=== PATIENT | male | born 1980 | race Native Hawaiian/Other Pacific Islander ===

== ENCOUNTER 2019-01-27 16:11 | Outpatient (CLI) | payer MEDICAID | END 2019-01-27 16:12 | disposition critical access hospital (66) | LOC: EMS 16:11 | PROVIDERS: ATTEND Surgery | DX: R07.9 Chest pain, unspecified (principal) | CPT/HCPCS: A0425; A0429 ==

== ENCOUNTER 2019-01-27 16:29 | Emergency (ER) | payer MEDICAID ==
[2019-01-27] MEDS ORDERED: LORazepam 2 MG/ML VIAL IM STA (16:44)
[2019-01-27] MEDS ORDERED: ONDANSETRON ODT 4 MG TABLET TL STA (16:44)
--- NOTE | 2019-01-27 16:47 | ED Physician Documentation ---
PD HPI CHEST PAIN - Stated complaint Stated Complaint: CP - Chief complaint Chief Complaint: Cardiac - History obtained from History obtained from: Patient - History of Present Illness Timing - onset: Other (38-year-old gentleman presents in police custody for chest pain and headache. He says he is had daily headaches for the last 6 months but has had migraines since he was the age of 21. He had his usual headache today associated with light sensitivity. He vomited with it. He is he took Tylenol and ibuprofen without relief. It is his typical headache. He is never had cranial imaging or seen a doctor for it. Then he used some intravenous methamphetamine and heroin. He went to [employer] where he was caught shoplifting and developed sharp anterior substernal chest pain. He is not short of breath with it. He has no heart problems.) Review of Systems Constitutional: denies: Fever, Chills Cardiac: reports: Chest pain / pressure. denies: Palpitations Respiratory: denies: Dyspnea, Cough GI: denies: Abdominal Pain, Nausea, Vomiting PD PAST MEDICAL HISTORY - Present Medications Home Medications: Ambulatory Orders Medication Instructions Recorded Confirmed No Known Home Medications 01/27/19 01/27/19 - Allergies Allergies/Adverse Reactions: Allergies Allergy/AdvReac Type Severity Reaction Status Date / Time No Known Drug Allergies Allergy Verified 01/27/19 16:36 PD ED PE NORMAL - Vitals Vital signs reviewed: Yes - General General: Alert and oriented X 3, No acute distress, Other (He is cooperative, but keeping his eyes closed. He is persistently asking for water. He is photophobic.) - HEENT HEENT: PERRL, EOMI - Neck Neck: Supple, no meningeal sign, No bony TTP - Cardiac Cardiac: RRR, No murmur - Respiratory Respiratory: No respiratory distress, Clear bilaterally - Abdomen Abdomen: Non tender - Neuro Neuro: Alert and oriented X 3, polymerization helper 2-12 intact, No motor deficit, No sensory deficit, Normal speech - Psych Psych: Normal mood, Normal affect Results - Vitals Vitals: Vital Signs - 24 hr 01/27/19 16:31 Temperature 37.0 C Heart Rate 104 H Respiratory 20 Rate Blood Pressure 123/75 O2 Saturation 97 Oxygen O2 Source Room air - EKG (time done) 1635 Rate: Rate (enter#) (107) Rhythm: Sinus tachycardia [place]: Normal Intervals: Normal MT QRS: Normal Ischemia: Normal ST segments Computer interpretation: Agree with computer - Labs Labs: Laboratory Tests 01/27/19 16:55 Troponin I High Sens < 2.3 L - Rads (name of study) CT Head and CXR Radiology: EMP read contemporaneously (normal) PD MEDICAL DECISION MAKING - ED course ED course: This is a young man who presents with ongoing headaches that have never been a been worked up. He also has new chest pain in the setting of heroin and methamphetamine abuse. His mental status is slightly hypervigilant. The headache pattern is most consistent with status migrainosus. My understanding is that he will be going to retirement after this work-up so we will do some cranial imaging, it could be done as outpatient but I do not think there is a way to do it in any sort of fashion given the circumstances other than doing it in the emergency depart. Given the circumstances I have a low suspicion for ACS, PE, dissection. His EKG is nonischemic. We will obtain a high-sensitivity troponin. - Consults Consults: Discussed case with (JOCELYNE Holm at retirement) Departure - Departure Disposition: 01 Home, Self Care Clinical Impression: Atypical chest pain Headache Qualifiers: Headache type: unspecified Headache chronicity pattern: chronic headache Intractability: not intractable Qualified Code(s): R51 - Headache Condition: Good Record reviewed to determine appropriate education?: Yes Instructions: ED Chest Pain NonCardiac, ED Cephalgia Unspecified Comments: Call your doctor to arrange a follow-up appointment, make the next available appointment. In the interim, return anytime if worse or if new symptoms develop. Avoid drug use
--- NOTE | 2019-01-27 17:42 | XRAY Report ---
Reason: chest pain Procedure Date: 01/27/2019 Accession Number: [id number] / [id number] Procedure: XR - Chest 2 View X-Ray CPT Code: 90524 Final Report FULL RESULT: EXAM: CHEST RADIOGRAPHY EXAM DATE: 01/27/2019 05:13 PM. CLINICAL HISTORY: Chest pain. COMPARISON: None. TECHNIQUE: 2 views. FINDINGS: Lungs/Pleura: No infiltrates. No pleural effusions or pneumothorax. Mediastinum: Heart and mediastinal contours are unremarkable. Other: None. IMPRESSION: No acute cardiopulmonary findings radiographically. [facility]
--- NOTE | 2019-01-27 17:50 | CT Report ---
Reason: headaches Procedure Date: 01/27/2019 Accession Number: [id number] / [id number] Procedure: CT - HEAD WO CPT Code: Final Report FULL RESULT: EXAM: CT HEAD EXAM DATE: 01/27/2019 05:12 PM. CLINICAL HISTORY: Headaches. COMPARISON: None. TECHNIQUE: Multiaxial CT images were obtained from the foramen magnum to the vertex. Reformats: Sagittal and coronal. IV contrast: None. In accordance with CT protocol optimization, one or more of the following dose reduction techniques were utilized for this exam: automated exposure control, adjustment of mA and/or KV based on patient size, or use of iterative reconstructive technique. FINDINGS: Parenchyma: No intraparenchymal hemorrhage. No evidence of mass, midline shift, or CT findings of infarction. Duckworth-white differentiation is distinct. Extraaxial Spaces: Normal for age. No subdural or epidural collections identified. Ventricles: Normal in size and position. Sinuses and Orbits: Polyp/retention cyst in the right maxillary sinus. Bones: No evidence of fracture or calvarial defect. Other: None. IMPRESSION: No acute intracranial findings. [facility]
[2019-01-27 18:13] VITALS: BP 132/77
== END 2019-01-27 18:14 | disposition home or self-care (01) ==
LOC: EDUNIT# → ED 16:29
DX: R07.89 Other chest pain (principal); R51 Headache; R00.0 Tachycardia, unspecified; F15.10 Other stimulant abuse, uncomplicated; F11.10 Opioid abuse, uncomplicated
CPT/HCPCS: 36415; 70450; 71046; 84484; 93005; 96374; 99284; J2060; Q0162

== ENCOUNTER 2023-09-18 09:21 | Outpatient (CLI) | payer MEDICAID ==
[2023-09-18 09:41] LABS: BASOPHILS # (AUTO) 0.1 10^3/uL (0.0-0.1); BASOPHILS % (AUTO) 0.9 %; EOSINOPHILS # (AUTO) 0.4 10^3/uL (0.0-0.7); HCT - HEMATOCRIT 43.7 % (42.0-52.0); HGB - HEMOGLOBIN 14.4 g/dL (14.0-18.0); LYMPHOCYTES # (AUTO) 2.9 10^3/uL (1.5-3.5); LYMPHOCYTES % (AUTO) 32.6 %; MEAN CORPUSCULAR HEMOGLOBIN 30.9 pg (27.0-31.0); MEAN CORPUSCULAR VOLUME 93.8 fL (80.0-94.0); MEAN PLATELET VOLUME 9.2 fL (7.4-11.4); MONOCYTES # (AUTO) 0.5 10^3/uL (0.0-1.0); NEUTROPHILS # (AUTO) 5.1 10^3/uL (1.5-6.6); NEUTROPHILS % (AUTO) 57.2 %; PLT - PLATELET COUNT 237 10^3/uL (130-450); RED BLOOD COUNT 4.66 10^6/uL (4.70-6.10); RED CELL DISTRIBUTION WIDTH 12.1 % (12.0-15.0); WHITE BLOOD COUNT 8.9 x10^3/uL (4.8-10.8)
[2023-09-18 09:58] LABS: ALBUMIN 4.3 g/dL (3.2-5.5); ALBUMIN/GLOBULIN RATIO 1.7 (1.0-2.2); BILIRUBIN,TOTAL 0.4 mg/dL (0.2-1.0); CALCIUM 9.4 mg/dL (8.5-10.3); POTASSIUM 4.2 mmol/L (3.5-4.5); TOTAL PROTEIN 6.9 g/dL (6.4-8.9)
[2023-09-19 05:13] LABS: HIV SCREEN 4TH GENERATION Non Reactive (Non Reactive)
== END 2023-09-18 09:22 | disposition home or self-care (01) ==
LOC: LAB 09:21
PROVIDERS: ATTEND Physician Assistant
DX: F17.200 Nicotine dependence, unspecified, uncomplicated (principal); B19.20 Unspecified viral hepatitis C without hepatic coma; Z86.59 Personal history of other mental and behavioral disorders
CPT/HCPCS: 36415; 80053; 85025; 86803; 87389